=== PATIENT | male | born 1980 | race Caucasian/White ===

== ENCOUNTER 2016-07-11 16:59 | Emergency (ER) | payer BC ==
[2016-07-11 17:11] VITALS: BP 138/88
--- NOTE | 2016-07-11 17:54 | UC ---
Back Pain HPI - HPI Summary HPI Summary: 35 yo male with the onset of left thoracic back pain 1 1/2 weeks ago throwing furniture in dump was doing better then reaggrivated it at work no f/c no leg pain/weakness no bowel /bladder dysfunction - History of Current Complaint Chief Complaint: UCBackPain Stated Complaint: BACK INJURY Time Seen by Provider: 07/11/16 17:35 Hx Obtained From: Patient Onset/Duration: Gradual Onset, Lasting Weeks Timing: Constant Severity Initially: Moderate Severity Currently: Mild Pain Intensity: 3 Pain Scale Used: 0-10 Numeric Character: Dull, Aching, Throbbing, Spasmodic Aggravating: Movement, Lifting, Bending Alleviating: Rest Related History: Previous Back Injury - Allergies/Home Medications Allergies/Adverse Reactions: Allergies Allergy/AdvReac Type Severity Reaction Status Date / Time No Known Allergies Allergy Verified 12/08/15 07:21 PMH/Surg Hx/FS Hx/Imm Hx Endocrine History Of: Denies: Diabetes, Thyroid Disease, Hyperthyroidism, Hypothyroidism, Dyslipidemia Cardiovascular History Of: Denies: Cardiac Disorders, Hypertension, Pacemaker/ICD, Myocardial Infarction , Congestive Heart Failure, Atrial Fibrillation, Deep Vein Thrombosis, Bleeding Disorders Respiratory History Of: Denies: COPD, Asthma, Bronchitis, Pneumonia, Pulmonary Embolism GI/ History Of: Denies: Gastroesophageal Reflux, Ulcer, Gastrointestinal Bleed, Gall Bladder Disease, Kidney Stones, Diverticulitis, Renal Disease, Urosepsis Neurological History Of: Denies: TIA, CVA, Dementia, Seizures, Migraine Psychological History Of: Denies: Anxiety, Depression, Bipolar Disorder, Schizophrenia, Post Traumatic Stress Disorder Cancer History Of: Denies: Lung Cancer, Colorectal Cancer, Breast Cancer, Prostate Cancer, Cervical Cancer Other History Of: Negative For: HIV, Hepatitis B, Hepatitis C, Anticoagulant Therapy - Surgical History Surgical History: None - Family History Known Family History: Positive: Cardiac Disease Negative: Hypertension, Diabetes - Social History Alcohol Use: Weekly Substance Use Type: Marijuana Substance Use Comment - Amount & Last Used: weekly Smoking Status (MU): Former Smoker Type: Cigarettes Household Exposure Type: Cigarettes Review of Systems Constitutional: Negative Skin: Negative Eyes: Negative ENT: Negative Respiratory: Negative Cardiovascular: Negative Gastrointestinal: Negative Genitourinary: Negative Motor: Negative Neurovascular: Negative Musculoskeletal: Myalgia Neurological: Negative Psychological: Negative All Other Systems Reviewed And Are Negative: Yes Physical Exam Triage Information Reviewed: Yes Appearance: Well-Appearing, No Pain Distress, Well-Nourished Vital Signs: Initial Vital Signs Temp 97.3 F 07/11/16 17:05 Pulse 72 07/11/16 17:05 Resp 18 07/11/16 17:05 BP 138/88 07/11/16 17:05 Pulse Ox 100 07/11/16 17:05 Vital Signs Reviewed: Yes Eyes: Positive: Conjunctiva Clear ENT: Positive: Hearing grossly normal. Negative: Nasal congestion, Nasal drainage, Trismus, Muffled/hoarse voice Neck: Positive: Supple, Nontender, No Lymphadenopathy Respiratory: Positive: Lungs clear, Normal breath sounds, No respiratory distress, No accessory muscle use Cardiovascular: Positive: RRR, No Murmur Abdominal Exam: Normal Musculoskeletal: Positive: ROM Intact, No Edema Neurological: Positive: Alert Psychological Exam: Normal Skin Exam: Normal Back Pain Course/Dx - Differential Dx/Diagnosis Provider Diagnoses: thoraic strain/spasm Discharge - Discharge Plan Condition: Stable Disposition: HOME Prescriptions: Cyclobenzaprine TAB* [Flexeril TAB*] 5 mg PO TID PRN #21 tab PRN Reason: Spasms Naproxen [Naproxen 500 MG TABS] 500 mg PO BID PRN #30 tab PRN Reason: Pain Patient Education Materials: Back Pain (ED) Forms: *Work Release Referrals: Vamshi Mayberry MD [Primary Care Provider] - 2 Weeks Additional Instructions: PT consult recheck for new or worsening symptoms\ muscle relaxant may cause drowsiness Images Front/Back of Body, Lg (Scott): 1 - pain here. normal gait. decreased ROM
== END 2016-07-11 17:53 | disposition home or self-care (01) ==
LOC: UCEAST 16:59
DX: S29.012A Strain of muscle and tendon of back wall of thorax, initial encounter (principal); X50.0XXA Overexertion from strenuous movement or load, initial encounter; Y93.9 Activity, unspecified; Y99.9 Unspecified external cause status; F12.10 Cannabis abuse, uncomplicated
CPT/HCPCS: 99212; G0463

== ENCOUNTER 2017-07-17 08:24 | Emergency (ER) | payer BC ==
[2017-07-17 08:39] VITALS: BP 146/84
--- NOTE | 2017-07-17 15:34 | UC ---
Josep Bui Nikita, scribed for Nate Montero MD on 07/17/17 at 0836 . Dental HPI - HPI Summary HPI Summary: This patient is a 36 year old M presenting to [facility] with a chief complaint of R upper dental pain since yesterday. The patient rates the pain 7/10 in severity. Symptoms aggravated by nothing. Symptoms alleviated by Aleve (states he has taken 4 tabs of 220mg last night and this morning). Patient reports swelling in the face since last night. - History of Current Complaint Stated Complaint: DENTAL PAIN Time Seen by Provider: 07/17/17 08:26 Hx Obtained From: Patient Onset/Duration: Sudden Onset, Lasting Days, Still Present Severity: Moderate Pain Intensity: 7 Pain Scale Used: 0-10 Numeric Aggravating Factor(s): Nothing Alleviating Factor(s): OTC Meds - states he has taken 4 tabs of 220mg of Aleve last night and this morning - Allergies/Home Medications Allergies/Adverse Reactions: Allergies Allergy/AdvReac Type Severity Reaction Status Date / Time No Known Allergies Allergy Verified 07/17/17 08:32 Home Medications: Home Medications Allopurinol TAB* [Zyloprim 300 MG TAB*] 1 tab PO DAILY 07/17/17 [History Confirmed 07/17/17] Colchicine* [Colcrys*] 1 tab PO TID PRN MDD 2 07/17/17 [History Confirmed ] Naproxen Sodium [Naproxen 220 mg] 4 tab PO Q12HR PRN 07/17/17 [History Confirmed 07/17/17] PMH/Surg Hx/FS Hx/Imm Hx Cardiovascular History: Other Other Cardiovascular History: No CAD, HTN Respiratory History: Other Other Respiratory History: No asthma Other History Of: Negative For: HIV, Hepatitis B, Hepatitis C, Anticoagulant Therapy - Surgical History Surgical History: None - Family History Known Family History: Positive: Cardiac Disease, Hypertension Negative: Diabetes - Social History Alcohol Use: Weekly Substance Use Type: Marijuana Substance Use Comment - Amount & Last Used: weekly Smoking Status (MU): Former Smoker Type: Cigarettes Household Exposure Type: Cigarettes Review of Systems Constitutional: Other - denies fever ENT: Dental Pain - R upper tooth abscess, Other - facial swelling since last night All Other Systems Reviewed And Are Negative: Yes Physical Exam - Summary Physical Exam Summary: VITAL SIGNS: Reviewed. GENERAL: ~Patient is a well-developed and nourished MALE who is lying comfortable in the stretcher. ~Patient is not in any acute respiratory distress. HEAD AND FACE: Normocephalic EYES: PERRLA, EOMI x 2. EARS: Hearing grossly intact. MOUTH: Oropharynx within normal limits. No trismus, no swelling of tongue or lips. Cavity in R upper molar. NECK: Supple, trachea is midline, no adenopathy, no JVD, no carotid bruit. CHEST: Symmetric, no tenderness at palpation LUNGS: Clear to auscultation bilaterally. No wheezing or crackles. CVS: Regular rate and rhythm, S1 and S2 present, no murmurs or gallops appreciated. ABDOMEN: Soft, non-tender. Bowel sounds are normal. No abdominal abnormal pulsations. EXTREMITIES: Full ROM in all major joints, no edema, no cyanosis or clubbing. NEURO: Alert and oriented x 3. No acute neurological deficits. Speech is normal and follows commands. SKIN: Dry and warm Triage Information Reviewed: Yes Vital Signs Reviewed: Yes Dental Complaint Course/Dx - Course Course Of Treatment: This patient is a 36 year old M presenting to [facility] with a chief complaint of R upper dental pain since a couple days ago. The patient will be discharged with instructions to follow up with his dentist. The patient was found to have increased BP in UC. The patient will follow up with PCP for better control of BP. The pt is hemodynamically stable, alert and oriented x3. I discussed all the findings and test results with the patient. The patient will be discharged with instructions to follow up with their PCP. Patient was instructed to return to the urgent care or go to ER immediately if any of the symptoms return or worsens. Plan of care was discussed with the patient, and patient understands and agrees. All questions were answered to patient satisfaction. There were no further complaints or concerns. - Differential Dx/Diagnosis Provider Diagnoses: dental pain, dental abscess Discharge - Sign-Out/Discharge Documenting (check all that apply): Discharge/Admit/Transfer - Discharge Plan Condition: Stable Disposition: HOME Prescriptions: Amoxicillin PO (*) [Amoxicillin 875 MG (*)] 875 mg PO BID #20 tab Patient Education Materials: Dental Abscess (ED), Toothache (ED) Referrals: Vamshi Mayberry MD [Primary Care Provider] - Additional Instructions: Take medications as instructed Increase your fluid intake Return to the UC if symptoms worsen The documentation as recorded by the Josep bynum Nikita accurately reflects the service I personally performed and the decisions made by me, Nate Montero MD.
== END 2017-07-17 08:54 | disposition home or self-care (01) ==
LOC: UCEAST 08:24
DX: K04.7 Periapical abscess without sinus (principal); Z87.891 Personal history of nicotine dependence
CPT/HCPCS: 99212; G0463